=== PATIENT | female | born 1970 | race Caucasian/White ===

== ENCOUNTER → 2019-08-06 09:05 | Outpatient (BNVA) | payer OTHER, SELFPAY | PROVIDERS: Family Provider Electrodiagnostic Medicine; Visit Provider Nurse Practitioner Women's Health | DX: Z01.419 Encounter for gynecological examination (general) (routine) without abnormal findings (principal); N95.1 Menopausal and female climacteric states | CPT/HCPCS: 88175 ==

== ENCOUNTER 2020-05-20 09:40 | Outpatient (CLI) | payer OTHER, SELFPAY ==
--- NOTE | 2020-05-20 09:53 | FL_ITS ---
WS: [id number] Barium swallow and esophagram, upper GI series with air, 05/20/2020 Clinical Data: HIATAL,HERNIA, ANEMIA, GERD Comparison: None. Fluoroscopy time: 1.4 minutes. Findings: The patient swallowed the thick and thin barium, and it flowed to the hypopharynx without hesitation. No stricture, mass, polyp or erosion was seen. 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 The pat ient has had an artificial disc at C6-C7 The barium into the esophagus and there was normal motility throughout. No hiatal hernia, reflux, str icture, polyp, mass, erosion or ulcer was noted. No reflux was present. The barium passed into the stomach which was well distended. There was a hiatal hernia with moderate gastroesophageal reflux. No stricture, mass, polyp, erosion or ulcer could be seen. The stomach diste nded normally with no ulcer, mass or extrinsic deformity. The barium passed into the duodenal bulb wh ich showed no ulcer. The proximal small bowel is unremarkable. The proximal small bowel is normal. FL/FL upper GI w air* [id number] Impression: 1. 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 2. Moderate hiatal hernia with gastroesophageal reflux.
== END 2020-05-20 09:41 | disposition home or self-care (01) ==
LOC: RADWPI 09:53
PROVIDERS: PCP Electrodiagnostic Medicine; Visit Provider Electrodiagnostic Medicine
DX: K44.9 Diaphragmatic hernia without obstruction or gangrene (principal); D50.8 Other iron deficiency anemias; K21.9 Gastro-esophageal reflux disease without esophagitis; K22.0 Achalasia of cardia
CPT/HCPCS: 74246